=== PATIENT | male | born 1990 | race Caucasian/White ===

== ENCOUNTER 2023-06-04 14:36 | Emergency (ER) | payer OTHER, SELFPAY ==
[2023-06-04 14:58] VITALS: BP 128/80; PULSE 78; RESP 18; TEMP 36.6; O2SAT 99; BMI 29.7
--- NOTE | 2023-06-04 15:01 | ED.GENADULT ---
HPI - General Adult General Chief complaint: Eye Problems Stated complaint: L eye pain Time Seen by Provider: 06/04/23 15:20 Source: patient and service technician Mode of arrival: ambulatory Limitations: language barrier History of Present Illness HPI narrative: Patient is a 33 year old assigned male at with no reported medical history presenting to the emergency department today with left eye irritation. Patient states that over the last few hours his left eye felt like something was in it and he was rubbing it but it still hurts. Patient denies any dizziness, lightheadedness, abdominal pain, nausea, vomiting, fever, chills, blurry vision, double vision, loss of vision, chest pain, difficulty breathing, shortness of breath, back pain, night sweats, pain with urination, increased urinary frequency, increased urinary urgency, blood in his urine or stool, syncope or a near syncopal episode, bowel incontinence, bladder incontinence, bowel retention, bladder retention, or any other complaints at this time. Onset (ago): hour(s) Location: eyes and left Radiation: non-radiation Severity: mild Severity scale (1-10): 4 Relieving factors: none Exacerbating factors: none Associated symptoms: denies other symptoms Treatments prior to arrival: none Related Data Previous Rx's Medication Instructions Recorded erythromycin 5 mg/gram (0.5 %) eye 0.5 inch ophthalmic (eye) Q4H #3.5 06/04/23 ointment grams Allergies Allergy/AdvReac Type Severity Reaction Status Date / Time No Known Allergies Allergy Verified 06/04/23 15:05 Review of Systems Constitutional: Constitutional: Reports no additional constitutional complaints, Denies chills, Denies fever(s) and Denies night sweats Eyes: Eyes: Reports no additional eye complaints, Denies blurry vision, Denies change in vision, Denies diplopia, Denies eye discharge, Denies loss of vision and Reports eye pain ENT: Denies dizziness Cardiovascular: Cardiovascular: Reports no additional cardiovascular complaints, Denies chest pain, Denies lightheadedness, Denies Loss of Consciousness and Denies dyspnea Respiratory: Respiratory: Reports no additional respiratory complaints and Denies dyspnea Gastrointestinal: Gastrointestinal: Reports no additional gastrointestinal complaints, Denies abdominal pain, Denies melena, Denies hematochezia, Denies change in bowel habits and Denies change in stool character Genitourinary: Genitourinary: Reports no additional male genitourinary complaints, Denies hematuria, Denies oliguria, Denies difficulty urinating, Denies dysuria, Denies urinary frequency, Denies urinary hesitancy, Denies urinary incontinence and Denies urinary urgency Musculoskeletal: Musculoskeletal: Reports no additional musculoskeletal complaints, Denies numbness and Denies tingling Neurologic: Denies dizziness, Denies loss of vision, Denies numbness and Denies tingling Psychiatric: Psychiatric: Reports no additional psychiatric complaints Endocrine: Endocrine: Reports no additional endocrine complaints Hematologic/Lymphatic: Hematologic/Lymphatic: Reports no additional hematologic/lymphatic complaints Allergic/Immunologic: Allergic/Immunologic: Reports no additional allergic/immunologic complaints PMFSH Past Medical History Attestation statement: The following information was validated with the patient. Source: old records reviewed and nursing notes reviewed Social History Social History Advance Directives: No Advance Directives Information Provided: No Physical Exam ED Vital Signs: Vital Signs - 24 hr 06/04/23 14:58 Temperature 97.8 F Pulse Rate 78 Respiratory Rate 18 Blood Pressure 128/80 Pulse Oximetry 99 Oxygen Delivery Method Room Air BMI result Body Mass Index 29.7 Const General: cooperative, no acute distress, alert and awake Nutritional Appearance: well nourished Orientation/consciousness: patient oriented x3 Limitations: no limitations HENMT Head: Yes normal to inspection and Yes atraumatic Ears: hearing grossly normal bilaterally and external ears normal General nose exam: Normal external nose present, no nasal discharge noted and no epistaxis Face and sinus: Yes normal facial exam, No abrasion and No laceration Mouth: Normal oral and palatal mucosa present, no drooling and no muffled voice Eyes Periorbital: periorbital findings normal Eyelids: Yes eyelids normal Conjunctivae: conjunctivae normal Corneas: corneas abnormal on the left abrasion punctate Pupils: Equal, round and reactive pupils present EOM: EOMs intact bilaterally Neck Neck: Yes normal visual inspection, Yes full ROM and Yes no lymphadenopathy Chest Chest palpation & inspection: normal inspection of the chest Resp Effort & Inspection: normal respiratory effort and able to speak in complete sentences GI Inspection: Yes normal to inspection Neuro General: patient oriented x3 and moves all extremities Cranial nerves: Yes Equal, round and reactive pupils present Cognition (Neuro): normal cognition Motor exam (neuro): 5/5 motor strength present throughout Sensory Exam: Normal double simultaneous stimulation for sensation Coordination: [id number] test normal Extrem General: Yes normal to inspection, Yes full ROM and Yes capillary refill normal Psych Appearance: grossly normal Mental Status: mental status grossly normal Affect: normal affect Attitude: cooperative Thought process: Normal thought process present Thought content: Normal thought content present Insight: Good insight present (Psych) Course Course Course Narrative: RME-33 year old male presents for evaluation of left eye pain that started around 03:00 this morning. Unsure if anything went in his eye. It is very itchy and painful. Denies blurry vision. Plan for eye exam Medications Administered Discontinued Medications Generic Name Dose Route Start Last Admin Trade Name Freq PRN Reason Stop Dose Admin Erythromycin 1 cm 06/04/23 15:35 06/04/23 15:58 Erythromycin Base 0.5% Oph Oin 1 Gm Tube EYE-LEFT 06/04/23 15:36 1 cm ONCE ONE Administration Fluorescein Sodium 1 strip 06/04/23 15:05 06/04/23 16:07 Fluorescein Sodium Strip EYE-LEFT 06/04/23 15:06 1 strip ONCE ONE Administration Tetracaine HCl 1 drop 06/04/23 15:05 06/04/23 16:07 Tetracaine Hcl/Pf 0.5% Oph Anni 4 Ml Drops EYE-LEFT 06/04/23 15:06 1 drop ONCE ONE Administration Medical Decision Making Medical Decision Making [facility] [place] Narrative: Patient is a 33 year old assigned male at with no reported medical history presenting to the emergency department today with left eye irritation. Patient's physical exam showed a small corneal abrasion but was otherwise unremarkable. I explained my physical exam findings to the patient. I answered all questions asked by the patient. I stressed the importance of the patient taking his medication as prescribed. I stressed the importance of the patient following up with his primary care provider and an insurance specialist. I stressed the importance of the patient returning to the emergency department immediately if his symptoms were to worsen or if he were to develop any dizziness, shortness of breath, difficulty breathing, chest pain, blurry vision, loss of vision, nausea, vomiting, abdominal pain, fever, chills, back pain, or any other complaints. Patient verbalized agreement and understanding with this treatment plan and discharge. Differential Diagnosis Differential Diagnoses: The differential diagnosis associated with the presentation includes Corneal abrasion Eye irritation Prescription Management I considered prescription management with: Antibiotic (patient prescribed an antibiotic ointment for his eye.) Discharge Plan Discharge Clinical Impression: Corneal abrasion Patient Disposition: Home, Self-Care Instructions: Corneal Abrasion (DC) Additional Instructions: Follow up with your primary care provider and an insurance specialist. Return to the emergency department immediately if your symptoms worsen or if you develop any dizziness, shortness of breath, difficulty breathing, chest pain, blurry vision, loss of vision, nausea, vomiting, abdominal pain, fever, chills, back pain, or any other complaints. Prokonsul'tiruytes' so svoim lechashchim vrachom i okulistom. Nemedlenno vernites' v otdeleniye neotlozhnoy pomoshchi, yesli vashi simptomy ukhudshayutsya davis u vas poyavlyayetsya golovokruzheniye, odyshka, zatrudnennoye dykhaniye, heydi' v grudi, nechetkost' zreniya, poterya zreniya, toshnota, rvota, heydi' v zhivote, likhoradka, oznob, heydi' v spine davis lyubyye drugiye drugiye zhaloby. Prescriptions: New erythromycin 5 mg/gram (0.5 %) ointment 0.5 inch ophthalmic (eye) Q4H Qty: 3.5 0RF Referrals: [facility] [place]] (Call to establish and follow up with a primary care provider. Jaimevotravis lópez' postavshchika pervichnoy meditsinskoy pomoshchi i svyazat'sya s nim.) [facility] [place] Group] (Call to establish and follow up with a primary care provider. Pozvonitravis diamond naznfatimah' postavshchika pervichnoy meditsinskoy pomoshchi i svyazat'sya s nim.) [facility] [Provider Group] (Call to establish and follow up with a primary care provider. Pozvonidara chtoelle naznfatimah' postavshchika pervichnoy meditsinskoy pomoshchi i svyazat'sya s nim.) [facility]ped[facility] [Physician] - (Call to establish and follow up with an insurance specialist. travis Marte'sya i propeter'tirovat'sya u oftal'mologa.) Interventions: ED Discharge Assessment Last Done: 06/04/23 16:08 Discharge Date/Time: 06/04/23 16:11 Print Language: Macedonian
[2023-06-04] MEDS: Erythromycin Base 0.5% Oph Oin 1 GM TUBE 1 CM EYE-LEFT (15:58)
[2023-06-04] MEDS: Fluorescein Sodium STRIP 1 STRIP EYE-LEFT (16:07)
[2023-06-04] MEDS: Tetracaine HCl/PF 0.5% Oph Sol 4 ML DROPS 1 DROP EYE-LEFT (16:07)
== END 2023-06-04 16:11 | disposition home or self-care (01) ==
PROVIDERS: Emergency Provider Emergency Medicine
DX: S05.02XA Injury of conjunctiva and corneal abrasion without foreign body, left eye, initial encounter (principal); X58.XXXA Exposure to other specified factors, initial encounter; Y93.9 Activity, unspecified; Y92.9 Unspecified place or not applicable; Y99.9 Unspecified external cause status
CPT/HCPCS: 99282; 99283